=== PATIENT | male | born 1985 | race Hispanic/Latino ===

== ENCOUNTER 2017-04-15 15:34 | Inpatient (IN) | payer MEDICAID ==
[2017-04-15 15:57] VITALS: BMI 19.8
[2017-04-15 16:59] LABS: BASO # 0.1 K/uL (0.0-0.2); BASO % 0.8 % (0.0-2.0); EOS # 0.5 K/uL (0.0-0.7); EOS % 3.1 % (0.0-4.0); HEMATOCRIT 39.9 % (35.0-51.0); LYMPH # 2.3 K/uL (1.0-4.3); LYMPH % 14.4 % (20.0-40.0); MEAN CELL VOLUME 86.9 fL (80.0-94.0); MEAN CORPUSCULAR HEMOGLOBIN 29.5 pg (27.0-31.0); MEAN CORPUSCULAR HGB CONC 33.9 g/dL (33.0-37.0); MEAN PLATELET VOLUME 7.8 fL (7.2-11.7); MONO # 0.8 K/uL (0.0-0.8); RED CELL DISTRIBUTION WIDTH 13.8 % (11.5-14.5)
[2017-04-15 17:06] LABS: CHLORIDE 102 mmol/L (98-107)
[2017-04-15 17:07] LABS: POTASSIUM 3.9 mmol/L (3.6-5.2); SODIUM 142 mmol/L (132-148)
[2017-04-15 17:09] LABS: BILIRUBIN,TOTAL 0.6 mg/dL (0.2-1.3); GFR AFRICAN-AMERICAN > 60
[2017-04-15 17:10] LABS: ALKALINE PHOSPHATASE 96 U/L (38-126); ALT/SGPT 95 U/L (21-72); AST/SGOT 100 U/L (17-59); BLOOD UREA NITROGEN 12 mg/dL (9-20); CALCIUM 9.1 mg/dl (8.6-10.4); CARBON DIOXIDE 27 mmol/L (22-30); GLUCOSE,RANDOM 92 mg/dL (75-110); TOTAL PROTEIN 7.6 g/dL (6.3-8.3)
[2017-04-15 17:11] LABS: ALCOHOL SERUM < 10 mg/dl (0-10)
--- NOTE | 2017-04-15 17:28 | C.PDOC ---
History Of Present Illness 32 year old male presents to the emergency department seeking detox. Patient states last use of Xanax and Heroin was five days ago. c/o of mild cough. no fevers Time Seen by Provider: 04/15/17 16:25 Chief Complaint (Nursing): Substance Abuse History Per: Patient History/Exam Limitations: no limitations Suicide/Self Injury Attempted (Context): None Recent travel outside of the [place]: No Past Medical History Reviewed: Historical Data, Nursing Documentation, Vital Signs Vital Signs: Last Vital Signs Temp 98.1 F 04/15/17 15:57 Pulse 91 H 04/15/17 17:37 Resp 18 04/15/17 17:37 BP 127/82 04/15/17 17:37 Pulse Ox 98 04/15/17 18:08 - Medical History PMH: Kidney Stones Family History: States: Unknown Family Hx - Social History Hx Alcohol Use: Yes Hx Substance Use: Yes - Immunization History Hx Tetanus Toxoid Vaccination: No Hx Influenza Vaccination: No Hx Pneumococcal Vaccination: No Review Of Systems Constitutional: Negative for: Fever, Chills Cardiovascular: Negative for: Chest Pain, Palpitations Respiratory: Negative for: Cough, Shortness of Breath Gastrointestinal: Negative for: Nausea, Vomiting, Abdominal Pain, Diarrhea Physical Exam - Physical Exam Appears: Non-toxic, No Acute Distress Skin: Warm, Dry Head: Atraumatic Eye(s): bilateral: Normal Inspection, PERRL, EOMI Oral Mucosa: Moist Neck: Supple Chest: Symmetrical, No Deformity Cardiovascular: Rhythm Regular Respiratory: Normal Breath Sounds, No Rales, No Rhonchi, No Wheezing Gastrointestinal/Abdominal: Soft, No Tenderness, No Distention, No Guarding, No Rebound Extremity: Normal ROM, No Tenderness Neurological/Psych: Oriented x3, Normal Speech, Normal Cognition, Normal Cranial Nerves, Normal Motor, Normal Sensation Gait: Steady ED Course And Treatment - Laboratory Results Result Diagrams: 04/15/17 16:55 04/15/17 16:55 O2 Sat by Pulse Oximetry: 98 (room air ) Progress Note: CXR, UA, and labs were performed. Medical Decision Making Medical Decision Making: will medically clear 550: noted leukocytosis. cxr shjows devloping infiltrate. pt cannot be medicaly cleared. discussed with dr mckee accepts. Disposition - Disposition Disposition: HOSPITALIZED Disposition Time: 18:13 Condition: STABLE Forms: [employer] (Togolese) - Clinical Impression Clinical Impression: Drug abuse, Pneumonia, Sepsis - Scribe Statement The provider has reviewed the documentation as recorded by the Scribe Melania Grewal All medical record entries made by the Scribe were at my direction and personally dictated by me. I have reviewed the chart and agree that the record accurately reflects my personal performance of the history, physical exam, medical decision making, and the department course for this patient. I have also personally directed, reviewed, and agree with the discharge instructions and disposition. Decision To Admit - Pt Status Changed To: Hospital Disposition Of: Inpatient - Admit Certification Admit to Inpatient:: After my assessment, the patient will require hospitalization for at least two midnights. This is because of the severity of symptoms shown, intensity of services needed, and/or the medical risk in this patient being treated as an outpatient. - InPatient: Physician Admission Certification: I certify that this patient requires 2 or more midnights of care for the following reason:: pt needs detox, also with pna , cannot be medically cleared, need iv antibitoics - . Bed Request Type: Regular Admitting Physician: Chicho Mckee Patient Diagnosis: Drug abuse, Pneumonia, Sepsis
[2017-04-15 17:38] LABS: RBC URINE < 1 /hpf (0-3); URINE BILIRUBIN NEGATIVE (NEGATIVE); URINE BLOOD NEGATIVE (NEGATIVE); URINE COLOR Yellow (YELLOW); URINE GLUCOSE (UA) NORMAL (Normal); URINE KETONE NEGATIVE (NEGATIVE); URINE LEUKOCYTE ESTERASE NEG Leu/uL (Negative); URINE PROTEIN NEGATIVE (NEGATIVE); URINE UROBILINOGEN NORMAL mg/dL (0.2-1.0); WBC URINE 2 /hpf (0-5)
--- NOTE | 2017-04-15 18:01 | RAD ---
HISTORY: COMPARISON: No prior. TECHNIQUE: Chest PA and lateral FINDINGS: LINES AND TUBES: None. LUNG AND PLEURA: The lungs are hyperinflated and there is peribronchial cuffing with streaky opacities in both lungs. There is ill-defined airspace disease in the left upper lobe. . There are no pleural effusions or pneumothorax. HEART AND MEDIASTINUM: The heart is not enlarged. The hilar and mediastinal contours are within normal limits. SKELETAL STRUCTURES: The bony structures are within normal limits for the patient's age. VISUALIZED UPPER ABDOMEN: Normal. OTHER FINDINGS: None. IMPRESSION: Findings are most compatible with reactive small airway disease/ atypical/ viral bronchitis. Ill-defined airspace disease in the left upper lobe may represent developing pneumonia. Follow-up after medical management is recommended to ensure resolution.
[2017-04-15] MEDS ORDERED: Azithromycin 500 MG in Sodium Chloride 0.9% 250 ML IVPB STA ×2 (18:10→18:11)
[2017-04-15] MEDS ORDERED: Azithromycin 500mg/250ML NS 500 MG/250 ML BAG IVPB ONE (18:50)
[2017-04-15] MEDS ORDERED: cefTRIAXone IV 1 gm in Dextros 50 ML IVPB ONE (20:06)
--- NOTE | 2017-04-15 23:51 | CP.PCM.HP ---
History of Present Illness - History of Present Illness History of Present Illness: 32 year old male presents to the emergency department seeking detox. Patient states last use of Xanax and Heroin was five days ago. c/o of mild cough. no fevers Present on Admission - Present on Admission Any Indicators Present on Admission: Yes Review of Systems - Review of Systems Systems not reviewed;Unavailable: Unstable Vital Signs, Intoxicated - Constitutional Constitutional: Malaise - EENT Eyes: absent: As Per HPI, Blind Spots, Blurred Vision, Change in Vision, Decreased Night Vision, Diplopia, Discharge, Dry Eye, Exophthalmos, Floaters, Irritation, Itchy Eyes, Loss of Peripheral Vision, Pain, Photophobia, Requires Corrective Lenses, Sees Flashes, Spots in Vision, Tunnel Vision, Other Visual Disturbances, Loss of Vision, Other Ears: Dizziness Nose/Mouth/Throat: Nasal Obstruction - Cardiovascular Cardiovascular: absent: As Per HPI, Acrocyanosis, Chest Pain, Chest Pain at Rest , Chest Pain with Activity, Claudication, Diaphoresis, Dyspnea, Dyspnea on Exertion, Edema, Irregular Heart Rhythm, Pain Radiating to Arm/Neck/Jaw, Leg Edema, Leg Ulcers, Lightheadedness, Orthopnea, Palpitations, Paroxysmal Nocturnal Dyspnea, Pedal Edema, Radiating Pain, Rapid Heart Rate, Slow Heart Rate, Syncope, Other - Respiratory Respiratory: Cough, Dyspnea on Exertion, Wheezing, Excessive Mucous Production, Pain with Coughing Past Patient History - Past Medical History & Family History Past Medical History?: No - Past Social History Smoking Status: Heavy Smoker > 10 Cigarettes Daily - CARDIAC Hx Cardiac Disorders: No Hx Hypertension: No - PULMONARY Hx Tuberculosis: No - NEUROLOGICAL HX Cerebrovascular Accident: No Hx Seizures: No - RENAL Hx Kidney Stones: Yes - HEMATOLOGICAL/ONCOLOGICAL Hx Cancer: No Hx Human Immunodeficiency Virus (HIV): No - MUSCULOSKELETAL/RHEUMATOLOGICAL Hx Falls: No - GENITOURINARY/GYNECOLOGICAL Hx Sexually Transmitted Disorders: No - PSYCHIATRIC Hx Substance Use: Yes - SURGICAL HISTORY Hx Surgeries: No Other/Comment: Hx of broken jaw and hands - ANESTHESIA Hx Anesthesia: No Meds Allergies/Adverse Reactions: Allergies Allergy/AdvReac Type Severity Reaction Status Date / Time No Known Allergies Allergy Verified 04/16/17 17:27 Results - Vital Signs Recent Vital Signs: Last Vital Signs Temp 98.1 F 04/15/17 15:57 Pulse 91 H 04/15/17 17:37 Resp 18 04/15/17 17:37 BP 127/82 04/15/17 17:37 Pulse Ox 98 04/15/17 18:14 - Labs Result Diagrams: 04/15/17 16:55 04/15/17 16:55 Assessment & Plan (1) Alcohol intoxication Status: Acute (2) Drug abuse Status: Acute (3) Pneumonia Status: Acute (4) Sepsis Status: Acute
[2017-04-16 00:42] VITALS: RESP 20; TEMP 97.9; O2SAT 97
[2017-04-16 09:42] VITALS: BP 137/79; PULSE 76
[2017-04-16] MEDS ORDERED: guaiFENesin 600 mg ER Tab PO SCH (10:00)
[2017-04-16] MEDS ORDERED: Azithromycin 500 MG in Sodium Chloride 0.9% 250 ML IVPB SCH (18:15)
--- NOTE | 2017-04-16 22:43 | CP.PCM.DIS ---
Provider - Provider Date of Admission: 04/15/17 18:10 Attending physician: Chicho Mckee MD Time Spent in preparation of Discharge (in minutes): 45 Hospital Course - Lab Results Lab Results: Micro Results 04/15/17 18:45 Blood Blood Culture - Preliminary NO GROWTH AFTER 24 HOURS 04/15/17 18:15 Blood Blood Culture - Preliminary NO GROWTH AFTER 24 HOURS Most Recent Lab Values WBC 16.0 K/uL (4.8-10.8) H 04/15/17 16:55 RBC 4.59 Mil/uL (4.40-5.90) 04/15/17 16:55 Hgb 13.5 g/dL (12.0-18.0) 04/15/17 16:55 Hct 39.9 % (35.0-51.0) 04/15/17 16:55 MCV 86.9 fL (80.0-94.0) 04/15/17 16:55 MCH 29.5 pg (27.0-31.0) 04/15/17 16:55 MCHC 33.9 g/dL (33.0-37.0) 04/15/17 16:55 RDW 13.8 % (11.5-14.5) 04/15/17 16:55 Plt Count 248 K/uL (130-400) 04/15/17 16:55 MPV 7.8 fL (7.2-11.7) 04/15/17 16:55 Neut % (Auto) 76.7 % (50.0-75.0) H 04/15/17 16:55 Lymph % (Auto) 14.4 % (20.0-40.0) L 04/15/17 16:55 [place] % (Auto) 5.0 % (0.0-10.0) 04/15/17 16:55 Eos % (Auto) 3.1 % (0.0-4.0) 04/15/17 16:55 Baso % (Auto) 0.8 % (0.0-2.0) 04/15/17 16:55 Neut # 12.3 K/uL (1.8-7.0) H 04/15/17 16:55 Lymph # 2.3 K/uL (1.0-4.3) 04/15/17 16:55 [place] # 0.8 K/uL (0.0-0.8) 04/15/17 16:55 Eos # 0.5 K/uL (0.0-0.7) 04/15/17 16:55 Baso # 0.1 K/uL (0.0-0.2) 04/15/17 16:55 Sodium 142 mmol/L (132-148) 04/15/17 16:55 Potassium 3.9 mmol/L (3.6-5.2) 04/15/17 16:55 Chloride 102 mmol/L (98-107) 04/15/17 16:55 Carbon Dioxide 27 mmol/L (22-30) 04/15/17 16:55 Anion Gap 18 (10-20) 04/15/17 16:55 BUN 12 mg/dL (9-20) 04/15/17 16:55 Creatinine 0.8 MG/DL (0.8-1.5) 04/15/17 16:55 Est GFR ( Amer) > 60 04/15/17 16:55 Est GFR (Non-Af Amer) > 60 04/15/17 16:55 Random Glucose 92 mg/dL (75-110) 04/15/17 16:55 Calcium 9.1 mg/dl (8.6-10.4) 04/15/17 16:55 Total Bilirubin 0.6 mg/dL (0.2-1.3) 04/15/17 16:55 AST 100 U/L (17-59) H 04/15/17 16:55 ALT 95 U/L (21-72) H 04/15/17 16:55 Alkaline Phosphatase 96 U/L (38-126) 04/15/17 16:55 Total Protein 7.6 g/dL (6.3-8.3) 04/15/17 16:55 Albumin 3.8 g/dL (3.5-5.0) 04/15/17 16:55 Globulin 3.7 gm/dL (2.2-3.9) 04/15/17 16:55 Albumin/Globulin Ratio 1.0 (1.0-2.1) 04/15/17 16:55 Urine Color Yellow (YELLOW) 04/15/17 17:17 Urine Clarity Clear (Clear) 04/15/17 17:17 Urine pH 7.0 (5.0-8.0) 04/15/17 17:17 Ur Specific [place] 1.011 (1.003-1.030) 04/15/17 17:17 Urine Protein Negative mg/dL (NEGATIVE) 04/15/17 17:17 Urine Glucose (UA) Normal mg/dL (Normal) 04/15/17 17:17 Urine Ketones Negative mg/dL (NEGATIVE) 04/15/17 17:17 Urine Blood Negative (NEGATIVE) 04/15/17 17:17 Urine Nitrate Negative (NEGATIVE) 04/15/17 17:17 Urine Bilirubin Negative (NEGATIVE) 04/15/17 17:17 Urine Urobilinogen Normal mg/dL (0.2-1.0) 04/15/17 17:17 Ur Leukocyte Esterase Neg [place]/uL (Negative) 04/15/17 17:17 Urine WBC (Auto) 2 /hpf (0-5) 04/15/17 17:17 Urine RBC (Auto) < 1 /hpf (0-3) 04/15/17 17:17 Urine Opiates Screen Negative (NEGATIVE) 04/15/17 17:17 Urine Methadone Screen Negative (NEGATIVE) 04/15/17 17:17 Ur Barbiturates Screen Negative (NEGATIVE) 04/15/17 17:17 Ur Phencyclidine Scrn Negative (NEGATIVE) 04/15/17 17:17 Ur Amphetamines Screen Negative (NEGATIVE) 04/15/17 17:17 U Benzodiazepines Scrn Positive (NEGATIVE) 04/15/17 17:17 U Oth Cocaine Metabols Negative (NEGATIVE) 04/15/17 17:17 U Cannabinoids Screen Negative (NEGATIVE) 04/15/17 17:17 Alcohol, Quantitative < 10 mg/dl (0-10) 04/15/17 16:55 Discharge Exam - Head Exam Head Exam: ATRAUMATIC, NORMAL INSPECTION, NORMOCEPHALIC - ENT Exam ENT Exam: Mucous Membranes Moist - Respiratory Exam Respiratory Exam: Clear to PA & Lateral, NORMAL BREATHING PATTERN - Cardiovascular Exam Cardiovascular Exam: REGULAR RHYTHM, +S1, +S2 - GI/Abdominal Exam GI & Abdominal Exam: Normal Bowel Sounds Discharge Plan - Follow Up Plan Condition: STABLE Disposition: ELOPED FROM NURSING UNIT
--- NOTE | 2017-04-17 22:04 | CP.PCM.CON ---
History of Present Illness - History of Present Illness History of Present Illness: Please see Initial psychiatric consult Past Patient History - Past Medical History & Family History Past Medical History?: No - Past Social History Smoking Status: Heavy Smoker > 10 Cigarettes Daily - CARDIAC Hx Cardiac Disorders: No Hx Hypertension: No - PULMONARY Hx Tuberculosis: No - NEUROLOGICAL HX Cerebrovascular Accident: No Hx Seizures: No - RENAL Hx Kidney Stones: Yes - HEMATOLOGICAL/ONCOLOGICAL Hx Cancer: No Hx Human Immunodeficiency Virus (HIV): No - MUSCULOSKELETAL/RHEUMATOLOGICAL Hx Falls: No - GENITOURINARY/GYNECOLOGICAL Hx Sexually Transmitted Disorders: No - PSYCHIATRIC Hx Substance Use: Yes - SURGICAL HISTORY Hx Surgeries: No Other/Comment: Hx of broken jaw and hands - ANESTHESIA Hx Anesthesia: No Meds Allergies/Adverse Reactions: Allergies Allergy/AdvReac Type Severity Reaction Status Date / Time No Known Allergies Allergy Verified 04/16/17 17:27 Results - Vital Signs Recent Vital Signs: Last Vital Signs Temp 97.9 F 04/16/17 08:00 Pulse 76 04/16/17 08:00 Resp 20 04/16/17 08:00 BP 137/79 04/16/17 08:00 Pulse Ox 97 04/16/17 08:00 - Labs Result Diagrams: 04/15/17 16:55 04/15/17 16:55
--- NOTE | 2017-04-17 22:15 | PCM.PSYCH ---
Initial Psychiatric Evaluation - Initial Psychiatric Evaluation Type of Admission: Voluntary Legal Status: Capacity Chief Complaint (in patient's own words): I'm anxious and need medication History of Present Illness and Precipitating Events: This is a late note entry. Pt was seen and evaluated on 04/16/17. Chart reviewed and nurse input received HPI: This is a 32 year old single male with history of heroin abuse was consulted to psychiatric evaluation for detox. He reproted that he start abusing heroin at the age of 25 However, heroin amount was incresaed to 50 bags per day during past weeks. He stated that he was injecting heroin in his neck veins. He reported that he was sober for 2 years during his incarceration. He stated that presently he is on probation for drugs selling. He reported that he had no rehab and only one detox in 2014. Presently he reported that he has opioid withdrawal symptoms such as he had 2 episode of vomiting, feeling nauseated, hot and cold sweet and feeling like turkey, nasal congestion. However, his subjective symptoms were not evident nasal congestion, no piloercetion observed, no lacrimation of eyes noted. His vitals were also stable. It is observed that he was listening and enjoying music before the entrance of this database report writer in his room. His urine toxicology was positive for Bz, and negative for opiate. He denied major depressive symptoms, manic symptoms, anxiety symptoms. He denied perceptual disturbances. Current Medications: Azithromycin, ciprofloxacin. Please see History nd physical exam note for full medication list Past Psychiatric History - Past Psychiatric History Prior Professional Help: denied Prior Psychiatric Treatment: had one detox in 2015, but was unable to provide the name of hospital Duration: few days Nature of Treatment: heroin detox History of Abuse: He denied any h/o physical or sexual abuse History of ETOH/Drug Use: Please see HPI for heroin abuse. He denied any history marijuana, cocaine, and other drugs, including smoking cigarettes Pertinent Medical Hx (Current Medical&Sleep Prob, Allergies): Allergies Allergy/AdvReac Type Severity Reaction Status Date / Time No Known Allergies Allergy Verified 04/16/17 17:27 No Known Home Med 04/15/17 Review of Systems - Review of Systems All systems: reviewed and no additional remarkable complaints except (please see HPI note. He denied SOB, headaches) Mental Status Examination - Personal Presentation Personal Presentation: Looks younger than stated age, Dressed appropriate to season Additional comments: There was no evident nasal congestion, no piloercetion observed, no lacrimation of eyes noted. His vitals were also stable. It is observed that he was listening and enjoying music before the entrance of this database report writer in his room - Affect Affect: Constricted - Motor Activity Motor Activity: Calm - Reliability in Providing Information Reliability in Providing Information: Fair - Speech Speech: Coherent - Mood Mood: Anxious - Formal Thought Process Formal Thought Process: No Impairment, Other (goal directed that I want methadone) - Hallucinations/Delusions Hallucinations: Other Additional comments: denied - Obsessions/Compulsions Obsessions: No Compulsions: No - Cognitive Functions Orientation: Person, Place, Situation, Time Sensorium: Alert Attention/Concentration: Attentive Abstract Thinking: [place] Estimate of Intelligence: Average Judgement: Imparied, as evidence by: Poor judgement, Imparied, as evidence by: Lack of insight into illness - Risk Additional comments: low for SI - Strength & Assets Inventory Strength & Assets Inventory: Family support, Cooperative, Other (living with his mother) - Limitations Limitations: Other (abusing drug) DSM 5 DX - DSM 5 DSM 5 Diagnosis: Opioid use disorder severe. - Recommended/Plan of Treatment Treatment Recommendations and Plan of Treatment: Recommend symptomatic treatment for heroin withdrawal symptoms because he is on Azithromycin with Methadone can can prolong Qtc and can cause torsade pointe and . 1. Recommend to start Clonidine 0.1 mg po prn for autonomic instability. Hold if HR is less than 59, SBP is less than 100 2. Start Ibuprofen body aches. 3. Give Zofran po prn for N/V 4. Give Imodium prn for diarrhea. 5. Give Bentyl prn for stomach cramps. 6. Consult Psychiatry C/L prn. Thank you for consultation. Supportive therapy was provided Pt's information was collaborated with primary care team. Time spend 45 minutes Projected ELOS: as per primary team Prognosis: fair with treatment Discharge Plan and Discharge Criteria: as per primary team - Smoking Cessation Smoking Cessation Initiated: No Reason for not providing: n/a
== END 2017-04-16 14:48 | disposition left against medical advice (07) | DRG 743 ==
LOC: C.ER 15:34 → C.9E 18:10 → C.3T 19:46
PROVIDERS: ADMIT Internal Medicine; ATTEND Internal Medicine
DX: F11.23 Opioid dependence with withdrawal (principal)

== ENCOUNTER 2017-04-16 17:00 | Emergency (ER) | payer MEDICAID ==
[2017-04-16 17:00] VITALS: BMI 19.8
[2017-04-16 17:27] VITALS: BP 104/70; PULSE 100; RESP 16; TEMP 98.3; O2SAT 100
== END 2017-04-16 17:23 | disposition left against medical advice (07) ==
LOC: C.ER 17:00
DX: F11.10 Opioid abuse, uncomplicated (principal); F19.10 Other psychoactive substance abuse, uncomplicated; Z02.9 Encounter for administrative examinations, unspecified

== ENCOUNTER 2017-04-17 23:24 | Emergency (ER) | payer MEDICAID ==
[2017-04-17 23:25] VITALS: BMI 19.8
--- NOTE | 2017-04-17 23:56 | C.PDOC ---
History Of Present Illness Patient presents to the ER requesting detox from ETOH. Patient was recently admitted for pneumonia and ETOH detox; however, patient eloped. Denies physical complaints at this time. Time Seen by Provider: 04/17/17 23:55 Chief Complaint (Nursing): Substance Abuse History Per: Patient History/Exam Limitations: no limitations Onset/Duration Of Symptoms: Hrs Current Symptoms Are (Timing): Still Present Suicide/Self Injury Attempted (Context): None Modifying Factor(s): Alcohol Severity: None Pain Scale Rating Of: 0 Associated Symptoms: denies: Depression, Suicidal Thoughts, Suicidal Plan Involuntary Hold By: None Recent travel outside of the [place]: No Past Medical History Reviewed: Historical Data, Nursing Documentation, Vital Signs Vital Signs: Last Vital Signs Temp 97 F L 04/18/17 02:33 Pulse 110 H 04/18/17 02:33 Resp 16 04/18/17 02:33 BP 112/67 04/18/17 02:33 Pulse Ox 98 04/18/17 02:33 - Medical History PMH: Kidney Stones Surgical History: No Surg Hx Family History: States: No Known Family Hx - Social History Hx Alcohol Use: Yes Hx Substance Use: Yes - Immunization History Hx Tetanus Toxoid Vaccination: No Hx Influenza Vaccination: No Hx Pneumococcal Vaccination: No Review Of Systems Constitutional: Negative for: Fever, Chills Gastrointestinal: Negative for: Nausea, Vomiting, Diarrhea Physical Exam - Physical Exam Appears: Non-toxic Skin: Warm, Dry Oral Mucosa: Moist Chest: Symmetrical, No Tenderness Cardiovascular: Rhythm Regular, No Murmur Respiratory: No Rales, Rhonchi (At bases), No Wheezing Gastrointestinal/Abdominal: Soft, No Tenderness Neurological/Psych: Oriented x3 ED Course And Treatment - Laboratory Results Result Diagrams: 04/18/17 01:41 04/18/17 01:41 O2 Sat by Pulse Oximetry: 95 (Room air) Pulse Ox Interpretation: Normal Progress Note: Blood work and urinalysis ordered. ED OBSERVATION Discharge: Yes Date of observation admission: 04/18/17 Time of observation admission: 00:12 - Observation admission statement Patient is being placed in observation because:: acute alcohol intoxication - Goals of Observation Goals of observation are:: sobriety and crisis eval - Progress Note Progress Note: 04/18/17 00:12 vitals stable Disposition Counseled Patient/Family Regarding: Studies Performed, Diagnosis, Need For Followup - Disposition Disposition: HOME/ ROUTINE Disposition Time: 23:56 Condition: FAIR Instructions: Alcohol Intoxication (DC) Forms: [employer] (Korean) - Clinical Impression Clinical Impression: Alcohol intoxication - Scribe Statement The provider has reviewed the documentation as recorded by the Scribgallito Bose All medical record entries made by the Scribe were at my direction and personally dictated by me. I have reviewed the chart and agree that the record accurately reflects my personal performance of the history, physical exam, medical decision making, and the department course for this patient. I have also personally directed, reviewed, and agree with the discharge instructions and disposition.
[2017-04-18 01:59] LABS: BASO # 0.1 K/uL (0.0-0.2); BASO % 0.6 % (0.0-2.0); EOS # 0.2 K/uL (0.0-0.7); EOS % 2.8 % (0.0-4.0); HEMATOCRIT 39.9 % (35.0-51.0); LYMPH # 2.7 K/uL (1.0-4.3); LYMPH % 31.5 % (20.0-40.0); MEAN CELL VOLUME 86.9 fL (80.0-94.0); MEAN CORPUSCULAR HEMOGLOBIN 29.9 pg (27.0-31.0); MEAN CORPUSCULAR HGB CONC 34.4 g/dL (33.0-37.0); MEAN PLATELET VOLUME 7.3 fL (7.2-11.7); MONO # 0.9 K/uL (0.0-0.8); NRBC % 0.1 % (0.0-2.0); RED CELL DISTRIBUTION WIDTH 13.8 % (11.5-14.5); WHITE BLOOD COUNT 8.6 K/uL (4.8-10.8)
[2017-04-18 02:06] LABS: CHLORIDE 103 mmol/L (98-107)
[2017-04-18 02:07] LABS: POTASSIUM 3.9 mmol/L (3.6-5.2); SODIUM 144 mmol/L (132-148)
[2017-04-18 02:09] LABS: BILIRUBIN,TOTAL 0.5 mg/dL (0.2-1.3); GFR AFRICAN-AMERICAN > 60
[2017-04-18 02:10] LABS: ALKALINE PHOSPHATASE 101 U/L (38-126); ALT/SGPT 69 U/L (21-72); AST/SGOT 49 U/L (17-59); BLOOD UREA NITROGEN 10 mg/dL (9-20); CALCIUM 8.7 mg/dl (8.6-10.4); CARBON DIOXIDE 28 mmol/L (22-30); GLUCOSE,RANDOM 84 mg/dL (75-110); TOTAL PROTEIN 7.2 g/dL (6.3-8.3)
[2017-04-18 02:11] LABS: ALCOHOL SERUM < 10 mg/dl (0-10)
[2017-04-18 02:33] VITALS: BP 112/67; PULSE 110; TEMP 97
[2017-04-18 03:22] VITALS: O2SAT 95
[2017-04-18 03:26] LABS: RBC URINE < 1 /hpf (0-3); URINE BILIRUBIN NEGATIVE (NEGATIVE); URINE BLOOD NEGATIVE (NEGATIVE); URINE COLOR Yellow (YELLOW); URINE GLUCOSE (UA) NORMAL (Normal); URINE KETONE NEGATIVE (NEGATIVE); URINE LEUKOCYTE ESTERASE NEG Leu/uL (Negative); URINE PROTEIN NEGATIVE (NEGATIVE); URINE UROBILINOGEN NORMAL mg/dL (0.2-1.0); WBC URINE 4 /hpf (0-5)
[2017-04-18 03:33] VITALS: RESP 18
== END 2017-04-18 03:27 | disposition home or self-care (01) ==
LOC: C.ER 23:24
DX: F10.129 Alcohol abuse with intoxication, unspecified (principal)